=== PATIENT | female | born 1940 | race Caucasian/White ===

== ENCOUNTER 2016-07-25 18:27 | Emergency (ER) | payer MEDICARE, OTHER ==
--- NOTE | ~2016-07-25 | CR63 ---
[facility] A Service of [facility] RADIOLOGY TEXT RESULTS PATIENT: LEDY PEREZ LOCATION: SED : 42 UNIT #: [id number] AGE: [address]: mR Hendrix MD SEX: F ORDER DR: [id number] [place] [id number] E MR#: [id number] Acc #: [id number] NAME: LEDY PEREZ. : 1940 SEX: F STUDY DATE/TIME: 07/25/2016 18:13 UNIT: SED ROOM: STUDY DESCRIPTION: CR Chest 2 View Attending Physician: Rm Hendrix M.D. Ordering Physician: Rm Hendrix M.D. MEDICAL IMAGING REPORT This report is preliminary unless electronic signature is present. EXAM Chest x-ray 2 views HISTORY Short of air and coughing, symptoms for 4 days COMMENT 2 views of the chest are reviewed COMPARISON 02/17/2013 FINDINGS Lungs are hyperinflated and there is distortion of pulmonary parenchymal architecture consistent with underlying chronic obstructive lung disease. There is no pleural effusion. The heart size is normal. Mild thoracic degenerative changes. There is new opacity at the left lung base, which could be some atelectasis, aspiration or early pneumonia. Follow up to complete clearing is recommended. There is worsening thickening in the peribronchial vascular soft tissues bilaterally to the bases. IMPRESSION Interval development of increased parenchymal markings at the left base on comparison to the study from 2012. This could be due to development of aspiration or early pneumonia or some atelectasis, possibly due to mucus plugging. I suspect there is underlying bronchitis with thickening of the peribronchial vascular soft tissues. Again, there are findings consistent with underlying chronic obstructive lung disease with distortion of parenchymal architecture and hyperinflation. No congestive failure, pleural effusion or pneumothorax. Follow up to complete clearing recommended to exclude a post obstructive process. [facility] A Service [facility] RADIOLOGY TEXT RESULTS PATIENT: LEDY PEREZ LOCATION: SED : 41 UNIT #: [id number] AGE: [address]: Rm Hendrix MD SEX: F ORDER DR: Dictated by... Araseli Dykes M.D. THIS IS AN ELECTRONICALLY VERIFIED REPORT Araseli Dykes M.D. at 07/26/2016 3:09 PM SAC/to TD: 07/26/2016 13:43 JOB #: [id number] MEDICAL IMAGING REPORT Page 1 of 1
[2016-07-25 18:09] LABS: INFLUENZA A NEG (NEG); INFLUENZA B NEG (NEG)
[~2016-07-25 18:27] MED LIST: ACETAMINOPHEN PO; ACETAMINOPHEN325 MG PO; ALBUTEROL17 GM INH; ALPRAZOLAM; ASPIRIN PO; BACTRIM DS TABL1 TA1 PO; BUSPAR15 MG PO; CIPRO PO; CLEOCIN PO; DIFLUCAN100 MG PO; HUMIBID1200 MG PO; IBUPROFEN600 MG PO; LEVAQUIN PO; MOTRIN IB200 M1 PO; NITROFURANTOIN100 M3 PO; PERCOCET 5-3251 TAB PO; PERCOCET5/325 PO; PHENERGAN PO; PHENERGAN25 M1 DOB; PHENERGAN25 MG PO; PREDNISONE PO; PREDNISONE10 MG PO; PROVENTIL INH; PYRIDIUM PO; PYRIDIUM100 MG PO; SYMBICORT; TAMIFLU75 M1 PO; TRAMADOL HCL50 M1; ULTRAM PO; VIBRAMYCIN100 M1 PO; XANAX0.5 MG PO
== END 2016-07-25 19:38 | disposition home or self-care (01) ==
LOC: SED 18:27
PROVIDERS: Emergency Medicine
DX: J18.9 Pneumonia, unspecified organism (principal); F41.9 Anxiety disorder, unspecified; J44.9 Chronic obstructive pulmonary disease, unspecified; Z90.710 Acquired absence of both cervix and uterus; M19.90 Unspecified osteoarthritis, unspecified site; Z88.0 Allergy status to penicillin; Z88.5 Allergy status to narcotic agent; Z88.8 Allergy status to other drugs, medicaments and biological substances
CPT/HCPCS: 71020; 87651; 87804; 96372; 99283; J0696